=== PATIENT | male | born 1975 | race American Indian/Alaskan Native ===

== ENCOUNTER 2017-01-08 08:50 | Emergency (ER) | payer SELFPAY ==
[2017-01-08 09:25] VITALS: BP 142/94
[2017-01-08 09:58] LABS: Basophils % (Auto) 0.4 % (0.0-1.8); Eosinophils % (Auto) 1.6 % (0.0-4.3); Hematocrit 46.8 % (35.5-45.6); Hemoglobin 15.7 gm/dl (11.8-15.2); Mean Corpuscular HGB Conc 33 % (32-34); Mean Corpuscular Hemoglobin 29 pg (28-32); Mean Corpuscular Volume 87 fl (84-94); Platelet Count 199 K/mm3 (140-440); Red Blood Count 5.39 M/mm3 (3.65-5.03); White Blood Count 9.1 K/mm3 (4.5-11.0)
[2017-01-08 10:06] LABS: Alanine Aminotransferase 23 units/L (7-56); Albumin 4.2 g/dL (3.9-5); Albumin/Globulin Ratio 1.3 %; Alkaline Phosphatase 96 units/L (35-129); Anion Gap 16 mmol/L; Blood Urea Nitrogen 7 mg/dL (9-20); Calcium 9.2 mg/dL (8.4-10.2); Carbon Dioxide 26 mmol/L (22-30); Chloride 102.8 mmol/L (98-107); Glucose 107 mg/dL (75-100); Lipase 23 units/L (13-60); Sodium 141 mmol/L (137-145); Total Protein 7.5 g/dL (6.3-8.2)
[2017-01-08 11:05] LABS: Bilirubin,Urine NEG (Negative); Blood,Urine MOD (Negative); Ketones,Urine 20 mg/dL (Negative); Leukocyte Esterase,Urine NEG (Negative); Mucus,Urine FEW /HPF; Nitrite,Urine NEG (Negative); Protein,Urine <15 mg/dL mg/dL (Negative); Urobilinogen,Urine < 2.0 mg/dL (<2.0)
--- NOTE | 2017-01-09 17:47 | ED Elopement Review ---
ED Pt Elopement review - Results review Lab results: Laboratory Tests 01/08/17 01/08/17 01/08/17 09:39 09:39 10:09 WBC 9.1 RBC 5.39 H Hgb 15.7 H Hct 46.8 H MCV 87 MCH 29 MCHC 33 RDW 15.0 Plt Count 199 Lymph % (Auto) 17.2 [place] % (Auto) 10.4 H Eos % (Auto) 1.6 Baso % (Auto) 0.4 Lymph # 1.6 [place] # 0.9 H Eos # 0.1 Baso # 0.0 Seg Neutrophils % 70.4 H Seg Neutrophils # 6.4 Sodium 141 Potassium 4.0 Chloride 102.8 Carbon Dioxide 26 Anion Gap 16 BUN 7 L Creatinine 1.0 Estimated GFR > 60 BUN/Creatinine Ratio 7.00 Glucose 107 H Calcium 9.2 Total Bilirubin 1.0 AST 36 ALT 23 Alkaline Phosphatase 96 Total Protein 7.5 Albumin 4.2 Albumin/Globulin Ratio 1.3 Lipase 23 Urine Color Yellow Urine Turbidity Clear Urine pH 5.0 Ur Specific [place] 1.018 Urine Protein <15 mg/dl Urine Glucose (UA) Neg Urine Ketones 20 Urine Blood Mod Urine Nitrite Neg Urine Bilirubin Neg Urine Urobilinogen < 2.0 Ur Leukocyte Esterase Neg Urine WBC (Auto) 1.0 Urine RBC (Auto) 2.0 U Epithel Cells (Auto) < 1.0 Urine Mucus Few - Call Back decision Pt Call Back Decision: No action required
== END 2017-01-08 16:52 | disposition left against medical advice (07) ==
LOC: ED 08:50
DX: R10.30 Lower abdominal pain, unspecified (principal); Z53.21 Procedure and treatment not carried out due to patient leaving prior to being seen by health care provider
CPT/HCPCS: 36415; 80053; 81001; 83690; 85025